=== PATIENT | female | born 1995 | race Caucasian/White ===

== ENCOUNTER 2018-06-12 11:12 | Emergency (ER) | payer OTHER ==
[2018-06-12 11:34] VITALS: BP 139/78
--- NOTE | 2018-06-12 12:31 | ED Physician Documentation ---
PD HPI LOWER EXT INJURY - Stated complaint Stated Complaint: FOOT PX/DISCOMFORT - Chief complaint Chief Complaint: Ext Problem - History obtained from History obtained from: Patient - History of Present Illness PD HPI LOW EXT INJURY LOCATION: Left, Foot Type of injury: Twist (She injured her left foot about a month ago and has persistent pain especially in the bottom of the foot. She was seen initially here and had negative x-rays. She is unable to walk because of the pain. No possibility of .) Review of Systems Constitutional: reports: Reviewed and negative Cardiac: reports: Reviewed and negative Respiratory: reports: Reviewed and negative PD PAST MEDICAL HISTORY - Past Surgical History Past Surgical History: Yes HEENT: Tonsil/Adenoidectomy - Present Medications Home Medications: Ambulatory Orders Medication Instructions Recorded Confirmed No Known Home Medications 05/09/18 05/09/18 - Allergies Allergies/Adverse Reactions: Allergies Allergy/AdvReac Type Severity Reaction Status Date / Time No Known Drug Allergies Allergy Verified 06/12/18 11:34 - Social History Does the pt smoke?: No Smoking Status: Never smoker Does the pt drink ETOH?: Yes Does the pt have substance abuse?: No - Immunizations Immunizations are current?: Yes PD ED PE NORMAL - Vitals Vital signs reviewed: Yes - General General: Alert and oriented X 3, No acute distress - Extremities Extremities: Other (Right foot is cool but with good pulses. There is no swelling. She is tender mostly over the first and second metatarsals but even more so over the plantar fascia and has significant tender right at the insertion of the plantar fascia into the calcaneus and pain with forced dorsiflexion of the foot.) - Neuro Neuro: Alert and oriented X 3, Normal speech Results - Vitals Vitals: Vital Signs - 24 hr 06/12/18 11:32 Temperature 36.4 C L Heart Rate 72 Respiratory 20 Rate Blood Pressure 139/78 H O2 Saturation 100 Oxygen O2 Source Room air - Rads (name of study) 3v L foot Radiology: EMP read contemporaneously (normal) PD MEDICAL DECISION MAKING - ED course ED course: 22-year-old woman with a foot injury that is now a little over a month old with persistently negative x-rays. The examination ankle syndrome are most consistent with plantar fasciitis for which she was given Stretches to do and advised on follow-up. Departure - Departure Disposition: Home, Self Care Clinical Impression: Plantar fasciitis of left foot Condition: Good Record reviewed to determine appropriate education?: Yes Instructions: Plantar Fasciitis Tx, ED Plantar Fasciitis Follow-Up: [facility] [Provider Group] - Within 1 week Comments: Ibuprofen as needed for pain. Do the stretching as instructed. Follow-up with the orthopedist, call Thursday for an appointment. Your blood pressure was elevated today on check into the emergency department. This does not mean that you have hypertension, it is a common phenomenon to come to the emergency department and have elevated blood pressure. I recommend that you see your primary care physician within the week to have it rechecked when you are feeling better. Discharge Date/Time: 06/12/18 13:15
--- NOTE | 2018-06-12 13:04 | XRAY Report ---
Reason: Foot ankle inj Procedure Date: 06/12/2018 Accession Number: [id number] / [id number] Procedure: XR - Foot 3 View LT CPT Code: FULL RESULT: EXAM: LEFT FOOT RADIOGRAPHY EXAM DATE: 06/12/2018 12:54 PM. CLINICAL HISTORY: Left foot pain. COMPARISON: FOOT 3 VIEW LT 05/09/2018 7:37 PM. TECHNIQUE: 3 views. FINDINGS: Bones: Normal. No fractures or bone lesions. Joints: Normal. No subluxations. Soft Tissues: Normal. No soft tissue swelling. IMPRESSION: Normal foot radiography. [facility]
== END 2018-06-12 13:15 | disposition home or self-care (01) ==
LOC: ED 11:12
DX: M72.2 Plantar fascial fibromatosis (principal); R03.0 Elevated blood-pressure reading, without diagnosis of hypertension
CPT/HCPCS: 99282; 99283